=== PATIENT | female | born 1975 | race Two or more races ===

== ENCOUNTER 2018-09-21 16:03 | Emergency (ER) | payer OTHER ==
[2018-09-21] MEDS ORDERED: predniSONE TAB* 20 MG PO ONE (17:16)
[2018-09-21] MEDS ORDERED: Albuterol/Ipratropium NEB.SOL* Albuterol 2.5 MG/Ipratropium 0.5 MG 3 ML INH ONE (17:16)
--- NOTE | 2018-09-21 17:16 | UC ---
Respiratory Complaint HPI - HPI Summary HPI Summary: 43 y/o female presents to the urgent care c/o intermittent wheezing and SOB for the past 2 week. Pt reports symptoms started w/ seasonal allergies w/o any improvement. She feels she is now developing an asthma exacerbation since she has been using her albuterol inhaler and long acting inhaler w/o any improvement. Last night she felt her chest is tight when she coughs. Cough is dry. Pt denies fever, chest pain, abdominal pain, WINKLER,N/V/D. - History of Current Complaint Chief Complaint: UCRespiratory Stated Complaint: ASTHMA ISSUES Time Seen by Provider: 09/21/18 16:45 Hx Obtained From: Patient Hx Last Menstrual Period: 09/17/18 ?: No Onset/Duration: Gradual Onset, Lasting Weeks - 2 weeks, Still Present, Worse Since - 2 days Timing: Intermittent Episodes Severity Initially: Mild Severity Currently: Moderate Pain Intensity: 0 Pain Scale Used: 0-10 Numeric Character: Cough: Productive, Sputum Description: - yellowish Aggravating Factors: Recumbent Position Alleviating Factors: Bronchodilator Associated Signs And Symptoms: Positive: Wheezing, URI, Nasal Congestion. Negative: Fever, Chills, Dizziness, Sinus Discomfort Related History: Seasonal Allergies - Risk Factors Pulmonary Embolism Risk Factors: Negative Cardiac Risk Factors: Negative Pseudomonas Risk Factors: Negative Tuberculosis Risk Factors: Negative - Allergies/Home Medications Allergies/Adverse Reactions: Allergies Allergy/AdvReac Type Severity Reaction Status Date / Time No Known Allergies Allergy Verified 09/21/18 16:30 Home Medications: Home Medications Albuterol inh POWDER (NF) [Proair Respiclick] 2 puff INH Q6HR 09/21/18 [History Confirmed 09/21/18] Bupropion XL* [Wellbutrin XL *] 300 mg PO DAILY 09/21/18 [History Confirmed ] Fluticasone Furoate ELLIPTA(NF [Arnuity ELLIPTA (NF)] 100 mcg INH DAILY [History Confirmed 09/21/18] PMH/Surg Hx/FS Hx/Imm Hx Previously Healthy: Yes Respiratory History: Asthma - Surgical History Surgical History: None - Family History Known Family History: Positive: Hypertension, Diabetes - Social History Occupation: Employed Full-time Lives: With Family Alcohol Use: Weekly Alcohol Amount: couple drinks weekly Substance Use Type: None Smoking Status (MU): Never Smoked Tobacco Review of Systems All Other Systems Reviewed And Are Negative: Yes Constitutional: Positive: Negative Skin: Positive: Negative Eyes: Positive: Negative ENT: Positive: Nasal Discharge - clear, Sinus Congestion Respiratory: Positive: Cough - productive w/yellowish phlegm, Other - wheezing Cardiovascular: Positive: Negative Gastrointestinal: Positive: Negative Genitourinary: Positive: Negative Motor: Positive: Negative Neurovascular: Positive: Negative Musculoskeletal: Positive: Negative Neurological: Positive: Negative Psychological: Positive: Negative Is Patient Immunocompromised?: No Physical Exam - Summary Physical Exam Summary: Vital Signs Reviewed: Yes General: well developed, well nourished female sitting in the examining table w/ o any apparent distress Eyes: Positive: Conjunctiva Clear - PERRLA, EOMI, fundi grossly normal ENT: Positive: Normal ENT inspection, Hearing grossly normal, Pharynx normal, Nasal congestion - edematous and erythematous nasal mucosa, Nasal drainage - yellowish drainage, TMs normal. Negative: Tonsillar swelling, Tonsillar exudate Neck: Positive: Supple, Nontender, No Lymphadenopathy Respiratory: no orthopnea or dyspnea. Able to speak in full sentences, no retractions or accessory muscle use, no tripod position, stridor, or head bobbing. Positive breath sounds bilaterally. diffuse scattered wheezing on b/L lungs, no crackles or rales, no rhonchi. Cardiovascular: Positive: RRR, No Murmur, Pulses Normal, Brisk Capillary Refill Abdomen Description: Positive: Nontender, No Organomegaly, Soft. Negative: CVA Tenderness (R), CVA Tenderness (L) Bowel Sounds: Positive: Present Musculoskeletal Exam: Normal Musculoskeletal: Positive: Strength Intact, ROM Intact, No Edema Neurological Exam: Normal Psychological Exam: Normal Skin Exam: Normal Triage Information Reviewed: Yes Vital Signs: Initial Vital Signs Temp 99.1 F 09/21/18 16:26 Pulse 72 09/21/18 16:26 Resp 12 09/21/18 16:26 BP 122/67 09/21/18 16:26 Pulse Ox 100 09/21/18 16:26 Respiratory Course/Dx - Course Course Of Treatment: 43 y/o female presents to the urgent care c/o intermittent wheezing and SOB for the past 2 week. Pt reports symptoms started w/ seasonal allergies w/o any improvement. She feels she is now developing an asthma exacerbation since she has been using her albuterol inhaler and long acting inhaler w/o any improvement. Last night she felt her chest is tight when she coughs. Cough is dry. Pt denies fever, chest pain, abdominal pain, WINKLER,N/V/D. Hx obtained, Pt is hemodynamically stable, w/ an asthma exacerbation on examination. O2Sat:100% . Pt given Prednisone PO and Duoneb Treatment to alleviate symptoms. Pt tolerated well treatment and lungs improved,and wheezing resolved. Patient prescribed Prednisone taper dose, advised to continue w/ Albuterol neb. treatment to alleviate symptoms as directed below. The patient was recommended to increase fluid intake. Take medications as recommended. Pt advised to return to the clinic or f/u w/ her PCP if symptoms do not improve. All D/C instructions explained. Patient understood and agree w/ plan of care. Pt left clinic hemodynamically stable , A&OX3 - Differential Dx/Diagnosis Differential Diagnosis/HQI/PQRI: Asthma, Bronchitis, Exacerbation Of COPD, Laryngitis, Lower Resp Infection, Sinusitis, Other - pneumonia Provider Diagnosis: Asthma exacerbation Discharge - Sign-Out/Discharge Documenting (check all that apply): Patient Departure - D/C home All imaging exams completed and their final reports reviewed: No Studies - Discharge Plan Condition: Stable Disposition: HOME Prescriptions: predniSONE TAB* [Deltasone 20 MG TAB*] 20 mg PO DAILY #8 tab Patient Education Materials: Asthma (ED) Referrals: Asha Renae MD [Primary Care Provider] - 3 Days Additional Instructions: 1- Take Prednisone PO taper dose as directed starting tomorrow. First loading dose given today. 2-Use your albuterol inhaler w/ aerochamber to alleviate SOB, and wheezing as directed . Increase fluid intake, rest and eat well. 3- If symptoms do not improve or worsen or your develop SOB with fever and severe wheezing please go immediately to the ER further evaluation and treatment. 4- F/u with your PCP in 3 days for further management on your Asthma - Billing Disposition and Condition Condition: STABLE Disposition: Home - Attestation Statements Provider Attestation: Per institutional requirements, I have reviewed the chart, however, I was not consulted specifically or made aware of this patient by the midlevel provider. I did not personally evaluate, interact with , or disposition this patient.
[2018-09-21 21:02] VITALS: BP 122/67
== END 2018-09-21 18:07 | disposition home or self-care (01) ==
LOC: UCEAST 16:03
DX: J45.901 Unspecified asthma with (acute) exacerbation (principal)
CPT/HCPCS: 99212; A9270-GY; G0463; J7512